=== PATIENT | male | born 1945 | race Caucasian/White ===

== ENCOUNTER 2023-03-27 11:46 | Emergency (ER) | payer MEDICARE, OTHER ==
[~2023-03-27] VITALS: Ht 175.3 cm; Wt 148.0 kg
--- NOTE | 2023-03-27 12:06 | ED General ---
General Chief Complaint: Hip/Pelvic Problems Stated Complaint: HIP PAIN Nursing Triage Note: PT TO ED BY [facility] WITH C/O R HIP PAIN. EMS REPORTS PT FELL ON MONDAY, LANDING ON R HIP. PT HAD PAIN, BUT WAS ABLE TO AMBULATE LIKE NORMAL. PAIN INCREASED TODAY. Source of Information: Patient Exam Limitations: No Limitations History of Present Illness Date Seen by Provider: Mar 27, 2023 Time Seen by Provider: 11:52 Initial Comments Here with complaint of right hip pain and apparently fell last Monday, 3 days ago on the right hip. EMS was summoned at that time and he refused transport. He has had hip replacement previously in [place]. EMS from [facility] brought him here but did ask about transfer to [place] with the patient and he preferred here so presented here. Noted to have a fever today of unknown origin. Apparently he had mild fever on Monday per EMS as well but he again had refused transport. Does have a mild cough but denies fever, vomiting or diarrhea. Denies chest pain. He is having some shortness of breath and cough and the seem to be chronic. Does have history of heart failure hypertension and other medical problems. Patient is very hard of hearing and is a poor historian. His main complaint right now is right hip pain. Timing/Duration: 3-4 Days Severity: Moderate Modifying Factors: improves with Immobilization; worse with Movement Associated Systoms: Cough, Fever/Chills; No Nausea/Vomiting; Shortness of Air; No Weakness Allergies and Home Medications Patient Home Medication List Home Medication List Reviewed: Yes Review of Systems Review of Systems Constitutional: see HPI; No chills EENTM: No nose congestion, No throat pain Respiratory: cough, short of breath Cardiovascular: No chest pain; edema Gastrointestinal: No nausea, No vomiting Genitourinary: No dysuria Musculoskeletal: joint pain, muscle pain Skin: lesions (Bilateral lower extremities with venous stasis lesions) Psychiatric/Neurological: Weakness Past Pgkhqxc-Ldtian-Adstde Hx Patient Social History Tobacco Use?: No Use of E-Cig and/or Vaping dev: No Substance use?: No Alcohol Use?: Yes Alcohol Frequency: Once in a while Pt feels they are or have been: No Immunizations Up To Date Influenza Vaccine Up-to-Date: No; Not Current Past Medical History Surgery/Hospitalization HX: History of Guillain-Lopez syndrome, anemia, colostomy, right hip replacement Surgeries: Yes Orthopedic Respiratory: Yes COPD Coronary Artery Disease, High Cholesterol, Hypertension Family Medical History Reviewed Nursing Family Hx Physical Exam Vital Signs Vital Signs - First Documented 03/27/23 11:48 Temp 38.3 Pulse 85 Resp 18 B/P (MAP) 105/93 (97) Pulse Ox 97 O2 Delivery Room Air Capillary Refill : Less Than 3 Seconds Height, Weight, BMI Height: '" Weight: lbs. oz. kg; 48.00 BMI Method: General Appearance: WD/WN, Mild Distress HEENT: PERRL/EOMI Neck: Non Tender, Supple Respiratory: No Respiratory Distress, Other (Coarse lungs with trace wheezes bilateral) Cardiovascular: Regular Rate, Rhythm, No Murmur Gastrointestinal: Non Tender, Soft, Other (Colostomy left lower abdomen shows stool that appears to be slightly red-tinged. Patient states that is normal.) Back: Normal Inspection, No CVA Tenderness, No Vertebral Tenderness Extremity: Pedal Edema (2-3+ bilateral up to the level of knees with some venous stasis findings bilateral), Pelvis Stable, Other (Does have pain to the right proximal femur area) Neurologic/Psychiatric: Alert, Oriented x3, Other (Hard of hearing) Skin: Normal Color, Warm/Dry Progress/Results/Core Measures Suspected Sepsis SIRS Temperature: Pulse: 85 Respiratory Rate: 18 Laboratory Tests 03/27/23 12:09: White Blood Count 4.8 Blood Pressure 105 /93 Mean: 97 Laboratory Tests 03/27/23 12:09: Creatinine 1.58H, Platelet Count 95L, Total Bilirubin 1.2H Results/Orders Lab Results Laboratory Tests Test 03/27/23 12:06 03/27/23 12:09 Range/Units Influenza Type A (RT-PCR) Not Detected Not Detecte Influenza Type B (RT-PCR) Not Detected Not Detecte SARS-CoV-2 RNA (RT-PCR) Detected H Not Detecte White Blood Count 4.8 4.3-11.0 10^3/uL Red Blood Count 2.41 L 4.30-5.52 10^6/uL Hemoglobin 8.2 L 13.3-17.7 g/dL Hematocrit 26 L 40-54 % Mean Corpuscular Volume 106 H 80-99 fL Mean Corpuscular Hemoglobin 34 25-34 pg Mean Corpuscular Hemoglobin Concent 32 32-36 g/dL Red Cell Distribution Width 17.1 H 10.0-14.5 % Platelet Count 95 L 130-400 10^3/uL Mean Platelet Volume 11.3 9.0-12.2 fL Immature Granulocyte % (Auto) 0 % Neutrophils (%) (Auto) 74 42-75 % Lymphocytes (%) (Auto) 20 12-44 % Monocytes (%) (Auto) 5 0-12 % Eosinophils (%) (Auto) 0 0-10 % Basophils (%) (Auto) 0 0-10 % Neutrophils # (Auto) 3.6 1.8-7.8 10^3/uL Lymphocytes # (Auto) 1.0 1.0-4.0 10^3/uL Monocytes # (Auto) 0.3 0.0-1.0 10^3/uL Eosinophils # (Auto) 0.0 0.0-0.3 10^3/uL Basophils # (Auto) 0.0 0.0-0.1 10^3/uL Immature Granulocyte # (Auto) 0.0 0.0-0.1 10^3/uL Percent Immature Platelet Fraction 3.9 0.0-7.6 % Sodium Level 132 L 135-145 MMOL/L Potassium Level 3.8 3.6-5.0 MMOL/L Chloride Level 101 98-107 MMOL/L Carbon Dioxide Level 21 21-32 MMOL/L Anion Gap 10 5-14 MMOL/L Blood Urea Nitrogen 21 H 7-18 MG/DL Creatinine 1.58 H 0.60-1.30 MG/DL Estimat Glomerular Filtration Rate 44 BUN/Creatinine Ratio 13 Glucose Level 180 H 70-105 MG/DL Calcium Level 7.7 L 8.5-10.1 MG/DL Corrected Calcium 8.7 8.5-10.1 MG/DL Total Bilirubin 1.2 H 0.1-1.0 MG/DL Aspartate Amino Transf (AST/SGOT) 206 H 5-34 U/L Alanine Aminotransferase (ALT/SGPT) 42 0-55 U/L Alkaline Phosphatase 53 40-136 U/L Troponin I 0.037 H <0.028 NG/ML C-Reactive Protein High Sensitivity 15.49 H 0.00-0.50 MG/DL B-Type Natriuretic Peptide 27.7 <100.0 PG/ML Total Protein 7.1 6.4-8.2 GM/DL Albumin 2.7 L 3.2-4.5 GM/DL My Orders Orders - ROYER POWELL MD Bnp Beatriz (03/27/23 11:54) Cbc With Automated Diff (03/27/23 11:54) Comprehensive Metabolic Panel (03/27/23 11:54) Hs C Reactive Protein (03/27/23 11:54) Troponin I Beatriz (03/27/23 11:54) Influenza A And B By Pcr (03/27/23 11:54) Ed Iv/Invasive Line Start (03/27/23 11:54) Ekg Tracing (03/27/23 11:54) Monitor-Rhythm Ecg Trace Only (03/27/23 11:54) Covid 19 Inhouse Test (03/27/23 11:54) Pelvis With Right Hip 2-3views (03/27/23 ) Chest 1 View, Ap/Pa Only (03/27/23 ) Vital Signs/I&O 03/27/23 11:48 Temp 38.3 Pulse 85 Resp 18 B/P (MAP) 105/93 (97) Pulse Ox 97 O2 Delivery Room Air Capillary Refill : Less Than 3 Seconds Blood Pressure Mean: 97 Progress Note : Progress Note Seen and evaluated. We will get x-ray of the right hip and pelvis as well as chest x-ray. Given fever on arrival, we will go ahead and get CBC, CMP and I will also get troponin, BNP, EKG and check COVID and influenza. Patient did not know he had fever and is not complaining of any infective symptoms but he has had fever per EMS on 2 different visits both Monday last week and today. He is declining pain medicine at this point states he has not uncomfortable when he is laying down. Monitor patient. Differential diagnosis includes right hip fracture, pelvic fracture, contusion, COVID infection, other viral infection, pneumonia, heart failure, electrolyte abnormality 1315: CBC shows normal white count with low hemoglobin at 8.1. CMP reviewed and electrolytes are okay but glucose is elevated. Troponin is slightly elevated and BNP is negative. CRP is grossly elevated. Is positive and influenza is negative. Right hip and pelvis x-ray show fracture just below hardware on right femur with angulation slightly displaced on my interpretation and chest x-ray shows no obvious infiltrate on my interpretation. 1328: I did discuss the case with Dr. Arndt, orthopedist on-call here and this exceeds our level capability. I have paged [facility] in [facility] [place] and spoke with Dr. Urbina the orthopedist who states that is something that they can take and request ER to ER transfer with transfer to the ER physician. 1333: I did speak with Dr. Zelaya, ER physician on and he accepts patient in transfer ER to ER. He will go by our EMS. 1340: I have discussed all this with the patient and family. Patient's son is at bedside and they agree to the transfer and did request [facility] as their facility of choice. I did inform son of COVID findings. Patient has a long complex history and son is able to help elucidate that including the history of Guillain-Lopez, anemia and hip replacement previously. Pending EMS transport. ECG Initial ECG Impression Date: Mar 27, 2023 Initial ECG Impression Time: 12:04 Initial ECG Rate: 83 Initial ECG Rhythm: Normal Sinus Comment Rhythm with low voltage P waves cystification. Rumans ST elevation [place]. Interpreted by me. Departure Impression Primary Impression: Fracture of proximal end of right femur Qualified Codes: S72.001A - Fracture of unspecified part of neck of right femur, initial encounter for closed fracture Additional Impressions: COVID-19 virus infection Anemia Qualified Codes: D64.9 - Anemia, unspecified Disposition: 02 XFER SHT-TRM HOSP Condition: Stable Transfer Transfer Reason: Exceeds level of care Time Spoke to Accepting Phy: 13:33 Transfer Progress Notes See [facility], [facility] [place], Dr. Zelaya accepting and patient will go by [facility]. Transfer Time: 14:17 Transfer Facility: [facility] ROYER MARRERO MD Mar 27, 2023 12:06
[2023-03-27 12:15] LABS: EOSINOPHILS % (AUTO) 0 % (0-10); MEAN CORPUSCULAR HEMOGLOBIN 34 pg (25-34)
[2023-03-27 12:17] LABS: BASOPHILS % (AUTO) 0 % (0-10); HEMATOCRIT 26 % (40-54); HEMOGLOBIN 8.2 g/dL (13.3-17.7); LYMPHOCYTES % (AUTO) 20 % (12-44); MEAN CORPUSCULAR HGB CONC 32 g/dL (32-36); MEAN CORPUSCULAR VOLUME 106 fL (80-99); MEAN PLATELET VOLUME 11.3 fL (9.0-12.2); MONOCYTES # (AUTO) 0.3 10^3/uL (0.0-1.0); MONOCYTES % (AUTO) 5 % (0-12); NEUTROPHILS # (AUTO) 3.6 10^3/uL (1.8-7.8); NEUTROPHILS % (AUTO) 74 % (42-75); PLATELET COUNT 95 10^3/uL (130-400); WHITE BLOOD COUNT 4.8 10^3/uL (4.3-11.0)
[2023-03-27 12:33] LABS: ALBUMIN 2.7 GM/DL (3.2-4.5); BILIRUBIN,TOTAL 1.2 MG/DL (0.1-1.0); CALCIUM 7.7 MG/DL (8.5-10.1); CREATININE SERUM 1.58 MG/DL (0.60-1.30); POTASSIUM 3.8 MMOL/L (3.6-5.0); TOTAL PROTEIN 7.1 GM/DL (6.4-8.2)
--- NOTE | 2023-03-27 12:52 | Diagnostic Imaging Report ---
INDICATION: Fall and right hip pain and chest pain. TIME OF EXAM: 12:38 PM No prior studies are available for comparison. FINDINGS: Heart is enlarged. There are calcified lymph nodes in the mediastinum and zahraa consistent with prior granulomatous exposure. No infiltrates are seen. No effusion or pneumothorax. IMPRESSION: No acute cardiopulmonary process is detected. Dictated by: Dictated on workstation # [id number]
--- NOTE | 2023-03-27 13:02 | Diagnostic Imaging Report ---
EXAMINATION: Right hip unilateral, 2 or 3 views (w/pelvis when done). HISTORY: INDICATION: Pain after fall. COMPARISON: None available. FINDINGS: There is a right hip prosthesis. Adjacent to the distal tip of the femoral stem, there is an oblique fracture through the proximal femur with foreshortening and displacement. Diastasis measures approximately 3.2 cm. The proximal femur is displaced laterally in relation to the distal femur. There are multiple linear hyperdensities overlying the right hip of uncertain etiology, presumably post surgical but atypical in appearance. Correlate clinically. There is a displaced greater trochanteric osseous fragment which is likely chronic from the previous injury. Left hip is intact. IMPRESSION: 1. Acute foreshortened displaced fracture of the proximal humerus adjacent to the distal tip of the femoral stem. No dislocation. 2. Multiple serpiginous appearing hyperdensities within the soft tissues about the right hip of uncertain etiology. Dictated by: Dictated on workstation # [id number]
[2023-03-27 14:14] VITALS: BP 112/54
== END 2023-03-27 14:14 | disposition short-term general hospital (02) ==
LOC: EDBD 11:47 → ER 11:47
DX: S72.001A Fracture of unspecified part of neck of right femur, initial encounter for closed fracture (principal); U07.1 COVID-19; R06.02 Shortness of breath; R05.9 Cough, unspecified; D64.9 Anemia, unspecified; W19.XXXA Unspecified fall, initial encounter
CPT/HCPCS: 36415; 71045; 80053; 83880; 84484; 85025; 86141; 87636; 93005; 93041